=== PATIENT | male | born 1945 | race Caucasian/White ===

== ENCOUNTER 2018-04-04 19:57 | Inpatient (IN) | payer OTHER ==
[~2018-04-04] VITALS: Ht 187.9 cm; Wt 114.0 kg
[~2018-04-04 19:57] MED LIST: ASPIRIN81 M1 PO; ATENOLOL PO; CRESTOR20 MG PO; DAYPRO600 M1 PO; FISH OIL PO; KLOR-CON PO; LASIX40 MG PO; LISINOPRIL40 MG PO; MEDROL DOSEPAK4 MG PO; PERCOCET 325 MG1 TA3 PO; ROBAXIN750 MG PO; VITAMIN D PO
[2018-04-04 19:59] VITALS: BP 155/57
[2018-04-04 20:53] LABS: BASO % 0.2 % (0.0-1.0); EOS # 0.2 10*3/uL (0.0-0.4); HEMATOCRIT 43.2 % (42.0-52.0); HEMOGLOBIN 14.1 g/dl (14.0-18.0); LYMPH % 5.5 % (27.0-41.0); MEAN CELL VOLUME 93.9 fl (80.0-94.0); MEAN CORPUSCULAR HGB 30.7 pg (27.0-31.0); MEAN CORPUSCULAR HGB CONC 32.6 g/dl (33.0-37.0); MEAN PLATELET VOLUME 9.4 fl (9.6-12.3); MONO # 0.6 10*3/uL (0.1-1.0); MONO % 3.4 % (3.0-9.0); NEUT # 16.4 10*3/uL (2.3-7.9); NEUT % 89.6 % (47.0-73.0); PLATELET COUNT AUTOMATED 287 10*3/uL (130-400); RED CELL DISTRI WIDTH 13.5 % (0-14.5); WHITE BLOOD COUNT 18.3 10*3/uL (4.8-10.8)
[2018-04-04 21:08] LABS: ALBUMIN 3.7 gm/dl (3.1-4.5); ALKALINE PHOSPHATASE 57 U/L (45-117); BUN 15 mg/dl (7-24); CHLORIDE 102 mmol/L (98-107); CREATININE 1.17 mg/dL (0.70-1.30); POTASSIUM 4.3 mmol/L (3.5-5.1); SGOT/AST 17 IU/L (3-35); SGPT/ALT 24 U/L (12-78); SODIUM 138 mmol/L (136-145); TOTAL PROTEIN 7.2 gm/dL (6.4-8.2)
[2018-04-04 21:15] VITALS: BP 166/69
[2018-04-04 22:11] VITALS: BP 133/55
[2018-04-04 22:20] VITALS: BP 136/60
[2018-04-04] MEDS ORDERED: CENTRUM SILVER1 EACH PO (22:57)
[2018-04-04] MEDS ORDERED: ELIQUIS5 M1 PO (22:58)
[2018-04-04] MEDS ORDERED: LIPITOR40 MG PO (22:58)
[2018-04-04] MEDS ORDERED: LOPRESSOR25 MG PO (22:58)
[2018-04-04] MEDS ORDERED: MIRAPEX1 MG PO (22:59)
[2018-04-04] MEDS ORDERED: IMDUR SA60 M1 PO (22:59)
[2018-04-04] MEDS ORDERED: FLOMAX0.4 MG PO (22:59)
[2018-04-04] MEDS ORDERED: VITAMIN D32000 UNIT PO (23:00)
[2018-04-04] MEDS ORDERED: NEURONTIN300 MG PO (23:01)
[2018-04-04] MEDS ORDERED: GLUCOTROL5 MG PO (23:01)
[2018-04-04] MEDS ORDERED: NATURE'S BLEND F1 MG PO (23:01)
[2018-04-04] MEDS ORDERED: NITROSTAT0.4 MG SL (23:02)
[2018-04-04] MEDS ORDERED: PLAVIX75 M1 PO (23:02)
[2018-04-04] MEDS ORDERED: MELATONIN10 M2 PO (23:03)
[2018-04-05 04:01] LABS: HEMATOCRIT 39.1 % (42.0-52.0); HEMOGLOBIN 12.8 g/dl (14.0-18.0); MEAN CELL VOLUME 94.4 fl (80.0-94.0); MEAN CORPUSCULAR HGB 30.9 pg (27.0-31.0); MEAN CORPUSCULAR HGB CONC 32.7 g/dl (33.0-37.0); MEAN PLATELET VOLUME 9.5 fl (9.6-12.3); PLATELET COUNT AUTOMATED 234 10*3/uL (130-400); RED BLOOD COUNT 4.14 10*6/uL (4.50-5.90); RED CELL DISTRI WIDTH 13.6 % (0-14.5); WHITE BLOOD COUNT 27.8 10*3/uL (4.8-10.8)
[2018-04-05 04:22] LABS: BUN 18 mg/dl (7-24); CHLORIDE 106 mmol/L (98-107); CHOLESTEROL 113 mg/dL (<200); CREATININE 1.28 mg/dL (0.70-1.30); FREE T4 1.19 ng/dl (0.76-1.46); HDL CHOLESTEROL 42 mg/dl (40-60); LDL CHOLESTEROL 64 mg/dL (9-159); PHOSPHOROUS 3.4 mg/dL (2.5-4.9); POTASSIUM 4.1 mmol/L (3.5-5.1); SODIUM 141 mmol/L (136-145); TRIGLYCERIDES 36 mg/dl (<150); VLDL CHOLESTEROL 7 mg/dL (6-40)
[2018-04-05 04:25] LABS: PLATELET SUFFICIENCY NORMAL (NORMAL); TOTAL CELLS COUNTED 100 #CELLS
[2018-04-05 04:31] LABS: THYROID STIM HORMONE (HS) 0.529 uIU/ml (0.358-4.75)
[2018-04-05 08:00] VITALS: BP 136/86
[2018-04-05 09:30] LABS: VITAMIN D, 25-HYDROXY 34.9 ng/mL (30-100)
[2018-04-05 12:00] VITALS: BP 102/75
[2018-04-05 16:00] VITALS: BP 100/54
[2018-04-05 20:00] VITALS: BP 117/38
[2018-04-06] VITALS: BP 96/51
[2018-04-06 08:00] VITALS: BP 110/60
[2018-04-06 10:03] LABS: HEMATOCRIT 34.9 % (42.0-52.0); HEMOGLOBIN 11.7 g/dl (14.0-18.0); MEAN CELL VOLUME 92.3 fl (80.0-94.0); MEAN CORPUSCULAR HGB CONC 33.5 g/dl (33.0-37.0); MEAN PLATELET VOLUME 9.7 fl (9.6-12.3); PLATELET COUNT AUTOMATED 231 10*3/uL (130-400); RED BLOOD COUNT 3.78 10*6/uL (4.50-5.90); RED CELL DISTRI WIDTH 14.3 % (0-14.5); WHITE BLOOD COUNT 28.3 10*3/uL (4.8-10.8)
[2018-04-06 10:20] LABS: ALBUMIN 2.6 gm/dl (3.1-4.5); CREATININE 1.44 mg/dL (0.70-1.30); POTASSIUM 3.5 mmol/L (3.5-5.1); TOTAL PROTEIN 6.1 gm/dL (6.4-8.2)
[2018-04-06 10:24] LABS: PLATELET SUFFICIENCY NORMAL (NORMAL); TOTAL CELLS COUNTED 100 #CELLS
[2018-04-06 12:22] VITALS: BP 106/58
[2018-04-06 16:00] VITALS: BP 111/52
[2018-04-06 20:00] VITALS: BP 94/36
[2018-04-06 22:29] VITALS: BP 98/60
[2018-04-07] VITALS: BP 94/38
[2018-04-07 08:07] LABS: BASO # 0.1 10*3/uL (0.0-0.1); BASO % 0.2 % (0.0-1.0); EOS # 0.1 10*3/uL (0.0-0.4); EOS % 0.6 % (1.0-4.0); HEMATOCRIT 36.4 % (42.0-52.0); LYMPH # 1.3 10*3/uL (1.3-4.4); LYMPH % 6.1 % (27.0-41.0); MEAN CELL VOLUME 93.3 fl (80.0-94.0); MEAN CORPUSCULAR HGB 30.8 pg (27.0-31.0); MEAN PLATELET VOLUME 9.6 fl (9.6-12.3); MONO % 4.6 % (3.0-9.0); NEUT # 18.3 10*3/uL (2.3-7.9); NEUT % 87.9 % (47.0-73.0); PLATELET COUNT AUTOMATED 261 10*3/uL (130-400); RED CELL DISTRI WIDTH 14.3 % (0-14.5); WHITE BLOOD COUNT 20.9 10*3/uL (4.8-10.8)
[2018-04-07 08:19] LABS: CREATININE 1.42 mg/dL (0.70-1.30); POTASSIUM 3.7 mmol/L (3.5-5.1)
[2018-04-07] MEDS ORDERED: DOXYCYCLINE100 M3 PO (11:04)
[2018-04-07] MEDS ORDERED: CLEOCIN HCL300 MG PO (11:14)
[2018-04-07 12:00] VITALS: BP 140/60
== END 2018-04-07 13:40 | disposition home or self-care (01) | DRG 871 ==
LOC: ED 19:57 → 5E 21:23 → EDHOLD 21:23 → 5E 21:52
PROVIDERS: Internal Medicine; Student in an Organized Health Care Education/Training Program
DX: A41.9 Sepsis, unspecified organism (principal); N17.0 Acute kidney failure with tubular necrosis; L03.115 Cellulitis of right lower limb; B37.89 Other sites of candidiasis; E55.9 Vitamin D deficiency, unspecified; I10 Essential (primary) hypertension; I25.10 Atherosclerotic heart disease of native coronary artery without angina pectoris; I48.0 Paroxysmal atrial fibrillation; E78.5 Hyperlipidemia, unspecified; E11.40 Type 2 diabetes mellitus with diabetic neuropathy, unspecified; G25.81 Restless legs syndrome; L89.151 Pressure ulcer of sacral region, stage 1; E11.65 Type 2 diabetes mellitus with hyperglycemia; N40.0 Benign prostatic hyperplasia without lower urinary tract symptoms; E66.9 Obesity, unspecified; Z88.1 Allergy status to other antibiotic agents; Z91.013 Allergy to seafood; Z91.048 Other nonmedicinal substance allergy status; Z82.49 Family history of ischemic heart disease and other diseases of the circulatory system; Z83.3 Family history of diabetes mellitus; Z80.9 Family history of malignant neoplasm, unspecified; Z95.0 Presence of cardiac pacemaker; Z87.891 Personal history of nicotine dependence; Z82.0 Family history of epilepsy and other diseases of the nervous system; Z79.899 Other long term (current) drug therapy; Z79.02 Long term (current) use of antithrombotics/antiplatelets; Z86.73 Personal history of transient ischemic attack (TIA), and cerebral infarction without residual deficits; Z68.31 Body mass index [BMI] 31.0-31.9, adult

== ENCOUNTER → 2019-02-25 | Outpatient (CLI) | payer MEDICARE ==
[~2019-02-25] MED LIST changes: +CENTRUM SILVER1 EACH PO; +CLEOCIN HCL300 MG PO; +DOXYCYCLINE100 M3 PO; +ELIQUIS5 M1 PO; +FLOMAX0.4 MG PO; +GLUCOTROL5 MG PO; +IMDUR SA60 M1 PO; +LIPITOR40 MG PO; +LOPRESSOR25 MG PO; +MELATONIN10 M2 PO; +MIRAPEX1 MG PO; +NATURE'S BLEND F1 MG PO; +NEURONTIN300 MG PO; +NITROSTAT0.4 MG SL; +PLAVIX75 M1 PO; +VITAMIN D32000 UNIT PO
== END | disposition home or self-care (01) ==
LOC: RAD 08:41
DX: R79.89 Other specified abnormal findings of blood chemistry (principal); I10 Essential (primary) hypertension; Z87.891 Personal history of nicotine dependence

== ENCOUNTER → 2019-07-26 | Outpatient (CLI) | payer MEDICARE | END | disposition home or self-care (01) | LOC: LAB 10:07 | DX: M47.812 Spondylosis without myelopathy or radiculopathy, cervical region (principal) ==

== ENCOUNTER → 2019-08-16 | Outpatient (CLI) | payer MEDICARE ==
[2019-08-16 12:56] LABS: BASO # 0.1 10*3/uL (0.0-0.1); BASO % 0.6 % (0.0-1.0); EOS # 0.5 10*3/uL (0.0-0.4); EOS % 5.8 % (1.0-4.0); HEMATOCRIT 38.9 % (42.0-52.0); LYMPH # 1.5 10*3/uL (1.3-4.4); LYMPH % 18.2 % (27.0-41.0); MEAN CELL VOLUME 94.2 fl (80.0-94.0); MEAN CORPUSCULAR HGB 30.5 pg (27.0-31.0); MEAN CORPUSCULAR HGB CONC 32.4 g/dl (33.0-37.0); MEAN PLATELET VOLUME 9.5 fl (9.6-12.3); MONO # 0.7 10*3/uL (0.1-1.0); MONO % 8.6 % (3.0-9.0); NEUT # 5.4 10*3/uL (2.3-7.9); NEUT % 66.6 % (47.0-73.0); PLATELET COUNT AUTOMATED 233 10*3/uL (130-400); RED BLOOD COUNT 4.13 10*6/uL (4.50-5.90); RED CELL DISTRI WIDTH 13.7 % (0-14.5); WHITE BLOOD COUNT 8.1 10*3/uL (4.8-10.8)
[2019-08-16 13:12] LABS: ALBUMIN 3.3 gm/dl (3.1-4.5); ALKALINE PHOSPHATASE 48 U/L (45-117); BUN 22 mg/dl (7-24); CHLORIDE 106 mmol/L (98-107); CREATININE 1.03 mg/dL (0.70-1.30); IRON 109 ug/dL (65-175); POTASSIUM 4.7 mmol/L (3.5-5.1); SGOT/AST 18 IU/L (3-35); SGPT/ALT 27 U/L (12-78); SODIUM 136 mmol/L (136-145); TOTAL IRON BINDING CAPACITY 309 ug/dl (250-450); TOTAL PROTEIN 6.8 gm/dL (6.4-8.2)
== END | disposition home or self-care (01) ==
LOC: LAB 12:24
PROVIDERS: Nurse Practitioner Family
DX: L29.9 Pruritus, unspecified (principal)

== ENCOUNTER → 2019-09-21 | Outpatient (CLI) | payer MEDICARE ==
[2019-09-21 08:52] VITALS: BP 147/57
== END | disposition home or self-care (01) ==
LOC: PICC 08:27
DX: L03.818 Cellulitis of other sites (principal); I10 Essential (primary) hypertension; E11.9 Type 2 diabetes mellitus without complications; Z82.49 Family history of ischemic heart disease and other diseases of the circulatory system; Z83.3 Family history of diabetes mellitus; Z80.8 Family history of malignant neoplasm of other organs or systems